=== PATIENT | male | born 1955 | race Caucasian/White ===

== ENCOUNTER 2020-06-07 06:36 | Outpatient (CLI) | payer BC ==
[2020-06-07 17:55] LABS: ALT (SGPT) 21 U/L (8-55); AST (SGOT) 22 U/L (5-34); Albumin 4.3 g/dL (3.4-4.8); Alkaline Phosphatase 68 U/L (40-110); Anion Gap 12 mmol/L (10-20); BUN (Urea Nitrogen) 16 mg/dL (8.4-25.7); Bilirubin, Total 1.2 mg/dL (0.2-1.2); Calc. Creatinine Clearance 0 mL/min (70-130); Calcium 8.3 mg/dL (7.8-10.44); Carbon Dioxide 29 mmol/L (23-31); Cardiac Risk 7.3 (Less than 4.5); Chloride 102 mmol/L (98-107); Cholesterol 226 mg/dl (< 200 Desired); Estimated GFR-MDRD 55; Globulin 2.4 g/dL (2.4-3.5); Glucose 103 mg/dL (80-115); HDL Cholesterol 31 mg/dL (>60 Neg Risk); LDL Cholesterol, Calculated 146 mg/dL; Potassium 4.2 mmol/L (3.5-5.1); Protein, Total 6.7 g/dL (5.8-8.1); Sodium 139 mmol/L (136-145); Triglycerides 245 mg/dL (Less than 150)
[2020-06-07 18:06] LABS: #Eosinphils 0.2 10x3/uL (0.0-0.5); #Monocytes 0.4 10x3/uL (0.0-1.1); #Neutrophils 3.8 10x3/uL (1.5-8.4); %Basophils 0.4 % (0.0-2.0); %Eosinophils 3.5 % (0.0-6.0); %Monocytes 7.2 % (0.0-10.0); %Neutrophils 66.5 % (40.0-75.0); Mean Corpuscular HGB CONC 34.6 G/DL (32.0-36.0); Mean Corpuscular Hemoglobin 30.7 PG (27.0-33.0); Mean Corpuscular Volume 88.9 fl (80.0-100.0); Mean Platelet Volume 11.7 fl (7.4-10.4); Platelet Count 179 10x3/uL (130-400); RBC Distribution Width 12.4 % (11.5-14.5); Red Blood Cell (RBC) Count 4.23 10x6/uL (4.40-5.80); White Blood Cell (WBC) Count 5.7 10x3/uL (4.5-11.0)
[2020-06-07 18:35] LABS: PTT 32.4 sec (22.0-33.0)
[2020-06-07 20:29] LABS: Hemoglobin A1c 5.4 % (4.0-6.0)
[2020-06-07 22:14] LABS: PSA-Asymptomatic (SCREENING) 1.19 ng/mL (0-4.0); Vitamin D, 25 Hydroxy 14.4 ng/ml (> 30.0)
[2020-06-08 03:09] LABS: SARS-CoV-2 MS2 Positive; SARS-CoV-2 N Gene Negative; SARS-CoV-2 S Gene Negative; SARS-CoV-2 by NAA Not Detected (NotDetected); SARS-CoV-2 orf1ab Negative
== END 2020-06-07 06:37 | disposition home or self-care (01) ==
LOC: LABBT 06:36
PROVIDERS: ATTEND Internal Medicine Cardiovascular Disease
DX: Z01.812 Encounter for preprocedural laboratory examination (principal); Z20.828 Contact with and (suspected) exposure to other viral communicable diseases; I48.91 Unspecified atrial fibrillation
CPT/HCPCS: 80061; 82306; 82607; 82746; 83036; 85610; 85730; 87635; G0103; U0003

== ENCOUNTER 2020-06-12 07:01 | Observation (INO) | payer BC ==
[2020-06-08 16:18] VITALS: BMI 34.7
[~2020-06-12 07:01] MED LIST: Heparin 10,000 UNITS/ 10 ML VIAL ONE
[2020-06-12] MEDS ORDERED: Fentanyl 100 MCG/2 ML VIAL ONE ×4 (07:03→12:52)
[2020-06-12] MEDS ORDERED: Midazolam HCl 2 mg/2 ml Vial ONE (07:56)
[2020-06-12] MEDS ORDERED: Heparin 25,000 units/D5W 500 ML ONE (09:09)
[2020-06-12] MEDS ORDERED: Heparin 10,000 UNITS/ 10 ML VIAL ONE (09:10)
[2020-06-12] MEDS ORDERED: Isoproterenol 0.2 MG/1 ML AMP ONE (10:12)
[2020-06-12] MEDS ORDERED: Ondansetron PF 4 MG/2 ML Vial ONE (10:51)
[2020-06-12] MEDS ORDERED: PHENYLEPHRINE-NS 100 MCG/ML 10 ML SYRINGE ONE (10:51)
[2020-06-12] MEDS ORDERED: Lidocaine 1% PF 5 ML VIAL ONE (10:51)
[2020-06-12] MEDS ORDERED: Rocuronium Bromide 10 MG/ML (10ML VIAL) ONE (10:51)
[2020-06-12] MEDS ORDERED: Dexamethasone 20 MG/5 ML VIAL ONE (10:51)
[2020-06-12] MEDS ORDERED: PROPOFOL 200 MG/20 ML VIAL ONE (10:51)
[2020-06-12] MEDS ORDERED: PROPOFOL 20 ML ONE (10:55)
[2020-06-12] MEDS ORDERED: Protamine Sulfate 50 MG/5 ML VIAL ONE (11:46)
[2020-06-12] MEDS ORDERED: Albuterol Sulfate 1.25 MG/3 ML NEB ONE (12:46)
[2020-06-12] MEDS ORDERED: Acetaminophen/Codeine 30-300mg Tablet PO PRN ×2 (13:00)
[2020-06-12] MEDS ORDERED: Furosemide 40 MG TAB PO PRN (13:06)
[2020-06-12] MEDS ORDERED: Potassium Chloride 20 MEQ TAB PO PRN (13:07)
[2020-06-12] MEDS ORDERED: Promethazine HCl 25 MG/ML VIAL ONE (14:07)
[2020-06-12] MEDS ORDERED: Acetaminophen/Codeine 30-300mg Tablet ONE (17:22)
[2020-06-12] MEDS ORDERED: Non-Formulary Medication 1 EACH PO PRN (18:56)
[2020-06-12] MEDS ORDERED: Ondansetron HCl/PF 4 MG/2 ML Vial IVP PRN (19:00)
[2020-06-12] MEDS ORDERED: Promethazine HCl 25 MG/ML VIAL IM/IV PRN (19:00)
[2020-06-12] MEDS: Carvedilol 25 MG TAB PO SCH ×2 (19:11→21:35)
[2020-06-12] MEDS: Sucralfate 1 GM TAB PO SCH ×2 (19:12→21:36)
[2020-06-12] MEDS ORDERED: ALPRAZolam 1 MG TAB PO SCH (21:00)
[2020-06-12] MEDS: Apixaban 5 MG TAB PO SCH (21:35)
[2020-06-12] MEDS: Magnesium Oxide 400 MG TAB PO SCH (21:36)
[2020-06-12] MEDS: Ketorolac Tromethamine 30 MG/ML VIAL IVP PRN (21:36)
[2020-06-12] MEDS: cloNIDine 0.1 MG TAB PO PRN (23:28)
[2020-06-13] MEDS: ALPRAZolam 0.25 MG TAB PO PRN ×2 (00:32→05:02)
[2020-06-13 04:21] LABS: Hemoglobin 12.2 g/dL (14.0-18.0); Platelet Count 173 thou/uL (130-400)
[2020-06-13] MEDS: cloNIDine 0.1 MG TAB PO PRN (05:02)
--- NOTE | 2020-06-13 07:27 | OP ---
DATE OF PROCEDURE: 06/12/2020 PROCEDURES PERFORMED: Electrophysiology study and radiofrequency ablation. PRIMARY CARE PROVIDER: Gillian Lopez, nurse practitioner. REASON FOR PROCEDURE: Mr. Buckner is a 64-year-old man with history of diastolic heart failure, significant LVH, obstructive sleep apnea, obesity, hypertension, and paroxysmal atrial fibrillation, which is highly symptomatic. He has not been able to tolerate antiarrhythmic regimen and was high risk for flecainide, has significant LVH. He is here for EP study and ablation. He has been well anticoagulated with Eliquis without interruption. DESCRIPTION OF PROCEDURE: The patient received general anesthesia. The left and right femoral vein were prepped, draped, and accessed under ultrasound guidance x2 in each side. On the left side, an 11-Malian sheath was used to advance the intracardiac echocardiogram. Probe was to the right atrium, where it was used to monitor the transseptal puncture, the pericardial space, and the catheter manipulation throughout the procedure. Also from the left femoral vein, an 8- Malian sheath was used to advance a DecaNav 3D mapping catheter and we obtained 3D map with this catheter as well as the His bundle, right atrium, right ventricle, and CS position was achieved. Pacing mapping was performed in each location including pacing left atrium via the CS and left ventricle later by the ablation catheter. Following this, IV heparin was administered, which was periodically checked and adjusted to keep ACT over 350. Following that, in the right femoral vein, two 8-Malian short sheath was exchanged to two SL1 sheaths. The sheaths were used to perform transseptal puncture under fluoroscopic and echocardiographic monitoring with the help of a powered Bitstrips transseptal needle. Through the SL1 sheath, a ThermoCool SFST catheter and a 20-pole Lasso catheter advanced to the left atrium. 3D map of the left atrium was obtained noting mildly enlarged left atrium, four separate pulmonary veins, and low scar burden. Following that, standard pulmonary venous isolation procedure was performed. Also roof and inferoposterior line were drawn to isolate the posterior wall. Throughout the posterior wall cerda, the esophageal temperature probe was closely monitored and excessive heating spots were avoided and also irrigated with high-flow irrigation for any temperature rise. We were able to isolate all 4 pulmonary veins and a posterior wall as well. After this the ablation catheter was advanced to the LV for LV pacing, ruling out accessory pathway. Isuprel was administered at this point and any reconnections re-ablated. At the end of the case, we used total of 91 lesions and 25 minutes and 22 seconds. Standard EP study was also performed demonstrating AV Wenckebach cycle length was 370 milliseconds and retrograde Wenckebach cycle length was 390 milliseconds. AV russ ERP was measured at 600/300 milliseconds. Concentric retrograde VA conduction was seen and no dual AV russ physiology was seen. Burst atrial pacing down to 200 milliseconds did not induce atrial arrhythmias. Following this, the catheters were removed from the left side and the long sheaths were exchanged to short sheaths and under vascular ultrasound, Vascade closures were performed in all four femoral veins. Protamine was also administered to reverse heparin effect. Prior to removal of the intracardiac catheter, the left ventricular view was checked again and no change in the pericardial space is noted. Also cardiac silhouette did not change throughout the procedure. CONCLUSION: 1. Successful isolation of all 4 pulmonary veins. 2. Posterior wall isolation with roof and inferoposterior lines. 3. Mildly enlarged left atrium with low scar burden. 4. Normal LVEF and significant LVH seen. 5. No evidence of accessory pathway or dual AV russ physiology. 6. No atrial arrhythmias inducible at the end of the case. PLAN: Monitor for recurrent arrhythmias and resume oral anticoagulation. Job ID: [id number] [facility]
[2020-06-13] MEDS: Magnesium Oxide 400 MG TAB PO SCH (08:09)
[2020-06-13] MEDS: Apixaban 5 MG TAB PO SCH (08:10)
[2020-06-13] MEDS: Sucralfate 1 GM TAB PO SCH ×2 (08:10→12:03)
[2020-06-13] MEDS: Carvedilol 25 MG TAB PO SCH (08:11)
[2020-06-13] MEDS ORDERED: Losartan 25 MG TAB PO SCH (09:00)
[2020-06-13] MEDS ORDERED: Allopurinol 300 MG TAB PO SCH (09:00)
[2020-06-13] MEDS ORDERED: Prevnar 13-Val Conj/PF 0.5 ML SYRINGE IM ONE (09:00)
[2020-06-13] MEDS ORDERED: Furosemide 40 MG/4 ML VIAL SLOW IVP SCH (09:00)
[2020-06-13] MEDS ORDERED: Enalaprilat Dihydrate 1.25 MG/ML VIAL SLOW IVP PRN (10:00)
[2020-06-13] MEDS: Ketorolac Tromethamine 30 MG/ML VIAL IVP PRN (12:41)
[2020-06-13 16:12] VITALS: BP 157/84; TEMP 98.4
[2020-06-13] MEDS ORDERED: Carvedilol 25 MG TAB PO SCH (17:00)
--- NOTE | 2020-06-13 23:50 | DIS ---
DATE OF ADMISSION: 06/12/2020 DATE OF DISCHARGE: 06/13/2020 23-hour observation. DIAGNOSIS: Paroxysmal atrial fibrillation. PROCEDURES PERFORMED: Electrophysiology study and radiofrequency ablation effectively isolating all four pulmonary veins in addition to the posterior wall. Mildly enlarged left atrium noted with low scar burden. Normal LVEF with significant left ventricular hypertrophy seen. No arrhythmias inducible at the end of the procedure. Vascade closure performed in all four femoral veins. SUBJECTIVE: Mr. Buckner is a 64-year-old man with a history of diastolic heart failure, significant LVH, and obstructive sleep apnea in addition to [id number] hypertension. He was seen to have highly symptomatic paroxysmal atrial fibrillation and not a good candidate for chronic antiarrhythmic therapy. He elected for outpatient EP study and ablation, which was performed as detailed above. He feels well overall. He does endorse he feels some fluid overload, shortness of breath, and peripheral swelling. He denies any chest discomfort, heart racing, palpitations, stroke or stroke-like symptoms. He is eating and drinking adequately and ambulating throughout the room. He has some mild tenderness at bilateral groin sites and has felt anxious for much of the night. OBJECTIVE: VITAL SIGNS: Temperature at discharge 98.1 degrees Fahrenheit, pulse 74, blood pressure 139/88, respirations 18, and oxygen 97% on room air. GENERAL: Patient is alert and oriented. Speech is clear. Affect is appropriate. He is in no apparent distress at the time of exam and resting comfortably in bed. HEENT: He is normocephalic, atraumatic. Sclerae anicteric. EOMs are intact. Oral mucosa is moist and pink with adequate dentition. NECK: Supple. Positive jugular venous distention. LUNGS: Clear in the upper nichols with bibasilar crackles to the lower nichols. HEART: Heart rate is irregularly irregular with crisp S1, S2. PMI is nondisplaced. ABDOMEN: Obese, slightly distended, which is partially his baseline habitus. EXTREMITIES: Warm and dry to touch. Well perfused without clubbing, cyanosis, 1+ pitting edema to his mid carrion, is noted in bilateral lower extremities. NEUROLOGIC: Grossly intact and nonfocal. Bilateral groin sites are stable without evidence of hematoma or bleeding complications. Telemetry and EKG show sinus rhythm. PLAN AND RECOMMENDATIONS: Mr. Buckner is doing well following his ablation yesterday. He is maintaining sinus rhythm. He did have some significant hypertension overnight and into this morning. His home medications were resumed and he was also given IV Lasix 40 mg to address his mild fluid overload. His blood pressure has corrected nicely and I feel he is ready for discharge. He is feeling well and is agreeable to this as well. DISCHARGE MEDICATIONS: Resuming home medications of: 1. Eliquis 5 mg p.o. b.i.d. 2. Allopurinol 300 mg p.o. daily. 3. Xanax 0.25 mg p.o. t.i.d. p.r.n. 4. Cozaar 100 mg p.o. daily . 5. Coreg increased to 50 mg b.i.d. 6. Xanax 1 mg p.o. at bedtime. 7. Mag-Ox 400 mg b.i.d. 8. Catapres 1 tab p.o. p.r.n. 9. Seroquel 100 mg p.o. daily p.r.n. New prescriptions: 1. Carafate 1 g p.o. q.i.d. x2 weeks. 2. Protonix 40 mg p.o. daily x1 month, then may resume home omeprazole. 3. Lasix 40 mg p.o. daily x3 days, then p.r.n. fluid retention, shortness of breath and edema to be taken with potassium chloride 20 mEq. DISCHARGE INSTRUCTIONS: No driving for at least three days or until bilateral groin sites have healed. In one week, he may resume activity gradually and as tolerated until then no lifting more than 10 to 15 pounds. He will follow up in 6 weeks with our office or sooner if symptoms dictate for any postablation arrhythmia concerns. CONDITION AT DISCHARGE: Stable. Over an hour time was spent arranging discharge and preparing this report. Job ID: [id number] [facility]
--- NOTE | 2020-06-20 20:34 | EKG ---
Test Reason : PREOP Blood Pressure : / mmHG Vent. Rate : 118 BPM Atrial Rate : 111 BPM P-R Int : 000 ms QRS Dur : 092 ms QT Int : 316 ms P-R-T Axes : 000 021 240 degrees QTc Int : 442 ms Atrial fibrillation with rapid ventricular response Abnormal ECG No previous ECGs available Confirmed by DR. Lisa CARDOZO ([id number]) on 06/20/2020 8:33:48 PM Referred By: [facility] Confirmed By:DR. Lisa CARDOZO
== END 2020-06-13 16:17 | disposition home or self-care (01) ==
LOC: CCL 07:01 → 2NO 11:53
PROVIDERS: ADMIT Internal Medicine Cardiovascular Disease; ATTEND Internal Medicine Cardiovascular Disease
PROC: 4A023FZ Measurement of Cardiac Rhythm, Percutaneous Approach (ICD-10-PCS; principal; 2020-06-13)
PROC: 4A0234Z Measurement of Cardiac Electrical Activity, Percutaneous Approach (ICD-10-PCS; 2020-06-13)
PROC: 02583ZZ Destruction of Conduction Mechanism, Percutaneous Approach (ICD-10-PCS; 2020-06-13)
PROC: 02K83ZZ Map Conduction Mechanism, Percutaneous Approach (ICD-10-PCS; 2020-06-13)
DX: I48.0 Paroxysmal atrial fibrillation (principal); I11.0 Hypertensive heart disease with heart failure; I50.30 Unspecified diastolic (congestive) heart failure; I25.10 Atherosclerotic heart disease of native coronary artery without angina pectoris; G47.33 Obstructive sleep apnea (adult) (pediatric); E66.9 Obesity, unspecified; Z68.37 Body mass index [BMI] 37.0-37.9, adult; Z79.01 Long term (current) use of anticoagulants; Z79.899 Other long term (current) drug therapy
CPT/HCPCS: 36415; 76942; 82565; 85014; 85018; 85049; 85347; 93005; 93010; 93613; 93622; 93623; 93656; 93657; 93662; 96374; 96375; C1732; C1759; G0378; J1100; J1644; J1885; J1940; J2250; J2405; J2550; J2704; J2720; J3010

== ENCOUNTER 2020-06-14 14:50 | Observation (INO) | payer BC ==
[~2020-06-14 14:50] MED LIST changes: -Heparin 10,000 UNITS/ 10 ML VIAL ONE; +Iopamidol-370 76% 500 ML 1 ML ONE
[2020-06-14] MEDS ORDERED: Labetalol HCl 100 MG/20 ML VIAL ONE (15:47)
[2020-06-14] MEDS ORDERED: Aspirin Chewable 81 MG TAB ONE (18:26)
--- NOTE | 2020-06-14 19:34 | RAD ---
PORTABLE CHEST: Date: 06/14/2020 HISTORY: Dyspnea. FINDINGS: Heart size is enlarged. Left-sided MediPort catheter is seen. Catheter tip overlies the superior vena cava. No signs of pneumothorax. Lungs are clear of infiltrates. No signs of failure. IMPRESSION: Cardiomegaly. POS: [facility]
--- NOTE | 2020-06-14 19:41 | CT ---
CT ANGIOGRAM CHEST WITH CONTRAST CT ANGIOGRAM ABDOMEN WITH CONTRAST DISSECTION PROTOCOL 06/14/20 HISTORY: Chest pain. COMPARISON: CT exam 2015. FINDINGS: Aortic contour is nonaneurysmal. There is mild edema with wall thickening of the lower lobe bronchi a s well as peripheral interstitial edema. This involves mainly only the lower lobes. There is small reactive paratracheal and paraesophageal lymph nodes as well as small bilateral hilar lymph nodes. Celiac trunk and superior mesenteric arteries are patent. Cortical scarring throughout t he left kidney with multiple cysts. There is also dystrophic ossifications inferior pole left kidney. Adrenal glands unremarkable. Cyst in hepatic segment III. No pneumomediastinum. No pneumothorax. Both upper lobe calcified granuloma. IMPRESSION: 1. No aortic dissection or aneurysm. 2. Some mild pulmonary edema in both lung bases along with peribronchial wall thickening. 3. No pneumothorax or pneumomediastinum. POS: [facility]
[2020-06-14] MEDS ORDERED: Ondansetron PF 4 MG/2 ML Vial IVP PRN (20:49)
[2020-06-14] MEDS ORDERED: Ondansetron ODT 4 MG TAB PO PRN (20:50)
[2020-06-14 20:51] LABS: ALT (SGPT) 34 U/L (8-55); AST (SGOT) 40 U/L (5-34); Albumin 4.2 g/dL (3.4-4.8); Alkaline Phosphatase 74 U/L (40-110); Anion Gap 14 mmol/L (10-20); BUN (Urea Nitrogen) 23 mg/dL (8.4-25.7); Bilirubin, Total 1.3 mg/dL (0.2-1.2); Calc. Creatinine Clearance 0 mL/min (70-130); Calcium 7.9 mg/dL (7.8-10.44); Carbon Dioxide 27 mmol/L (23-31); Chloride 101 mmol/L (98-107); Globulin 2.4 g/dL (2.4-3.5); Glucose 118 mg/dL (80-115); Lipase 19 U/L (8-78); Potassium 3.6 mmol/L (3.5-5.1); Protein, Total 6.6 g/dL (5.8-8.1); Sodium 138 mmol/L (136-145)
[2020-06-14] MEDS ORDERED: Acetaminophen 325 MG TAB PO PRN ×2 (20:51→21:13)
[2020-06-14 20:57] LABS: Troponin I 2.121 ng/mL (< 0.028)
[2020-06-14] MEDS ORDERED: Acetaminophen 650 MG Suppository PR PRN (21:13)
[2020-06-14] MEDS ORDERED: Potassium Chloride 20 MEQ TAB PO PRN (21:14)
[2020-06-14] MEDS ORDERED: ALPRAZolam 0.25 MG TAB PO PRN (21:14)
[2020-06-14] MEDS ORDERED: Apixaban 5 MG TAB PO SCH (21:45)
[2020-06-14] MEDS ORDERED: traMADol HCl 50 MG TAB PO SCH (21:45)
[2020-06-14] MEDS ORDERED: Carvedilol 25 MG TAB PO SCH (21:45)
[2020-06-14] MEDS ORDERED: ALPRAZolam 1 MG TAB PO SCH (22:00)
[2020-06-14 22:18] LABS: #Eosinphils 0.1 thou/uL (0.0-0.7); #Lymphocytes 0.8 thou/uL (1.20-3.40); #Monocytes 0.9 thou/uL (0.11-0.59); #Neutrophils 5.9 thou/uL (1.40-6.50); %Basophils 0.3 % (0.0-1.0); %Eosinophils 1.4 % (0.0-10.0); %Lymphocytes 10.8 % (21.0-51.0); %Monocytes 11.1 % (0.0-10.0); %Neutrophils 76.4 % (42.0-75.0); Hemoglobin 11.7 g/dL (14.0-18.0); INR-International Normal Ratio 1.1; Mean Corpuscular HGB CONC 35.4 g/dL (32.0-36.0); Mean Corpuscular Hemoglobin 32.8 pg (27.0-31.0); Mean Corpuscular Volume 92.5 fL (78.0-98.0); Mean Platelet Volume 9.2 fL (7.4-10.4); PTT 36.8 sec (22.9-36.1); Platelet Count 113 thou/uL (130-400); Prothrombin Time 14.7 sec (12.0-14.7); Red Blood Cell (RBC) Count 3.57 mill/uL (4.70-6.10); White Blood Cell (WBC) Count 7.7 thou/uL (4.8-10.8)
[2020-06-14 22:21] LABS: Platelet Morphology Comment Appears Decreased
[2020-06-14 22:26] LABS: CRP (Inflammatory) 6.18 mg/dL (= or < 0.5); Magnesium 1.4 mg/dL (1.6-2.6)
[2020-06-14 23:04] LABS: CKMB 5.4 ng/mL (0-6.6)
--- NOTE | 2020-06-14 23:04 | PDOC.HHP ---
Hospitalist HPI - History of Present Illness History of Present Illness: ADMISSION DATE: 06/14/2020 TIME OF ASSESSMENT: 1900 PRIMARY CARE PHYSICIAN: Gillian Lopez PA-C CHIEF COMPLAINT: Chest pain and a headache HPI: This is a 64-year-old gentleman who presents with complaints of chest pain that woke him up early hours this morning at approximately 3 AM. He had a right-sided headache as well at that time. States the pain was a 7 or 8 out of 10 in severity described as a constant pressure alleviated only with sitting forward and made worse with leaning or laying back. It is nonradiating. He states the pain persisted for approximately 4 hours until his woke up and he asked help with taking his morning medications. The pain has persisted which prompted him to come into the emergency department earlier this evening. He states it has eased to a 5 out of 10 in severity after taking his morning medications but has not resolved completely at any point today, either his chest pain or his headache. Patient states that prior to the recent procedure his blood pressure is always elevated in the 210s systolic and was within normal range prior to discharge. He states he felt extremely well and slept better than he had in a long time. He was discharged from the hospital yesterday, 06/13/2020, after undergoing an ablation by Dr. Davis for paroxysmal atrial fibrillation. He states upon discharge there were changes made to his home medications which included changing his Coreg from 25 mg p.o. 3 times daily to 50 mg p.o. twice daily. He was also sent on Lasix 40 mg daily x3 days due to fluid retention that he experienced while he was in the hospital. He states he had gained approximately 30 pounds during his admission which is evident from the fact that he currently weighs 170 pounds compared to 200 prior to discharge. ROS: He denies having any fevers chills or sweats. Denies any nausea or vomiting. Has not had any abdominal pain but does report loose stools after eating which is chronic for him since undergoing a cholecystectomy in the past. No blood in the stools. States the pain seems to be worse with deep inspiration as well. Has not noted any cough or hemoptysis. No lower extremity swelling calf tenderness or edema. No urinary symptoms. All other review of systems apart from what is mentioned above in HPI are negative. ED COURSE: EKG done in the emergency department was concerning for possible ST changes however this was reviewed by Dr. Soliz who felt it showed changes consistent with early repolarization. He advised him and the patient and plan for cardiology review in the morning. Laboratories done showed white cell count 7.7, hemoglobin 11.7, hematocrit 33, platelets 113, neutrophils 76.4%. Sodium 138 potassium 3.6 BUN 23, creatinine 1.44 GFR 50. Lactic acid 1.1. Total bilirubin 1.3, AST 40, ALT 34, alk phos 74, initial troponin I 2.121 and BNP 94.6. Lipase normal. Chest x-ray was done showing cardiomegaly. He underwent a CT angiogram of the chest that showed no aortic dissection or aneurysm. Some mild pulmonary edema in both lung bases along with peribronchial wall thickening noted. No pneumothorax or pneumomediastinum present. For his BP he was given 20 mg of IV labetalol. Also given Aspirin 324 mg PO due to elevated troponin. PAST MEDICAL HISTORY: 1. Hypertension 2. Paroxysmal A. fib, status post ablation 2. Asthma 3. GERD 4. Nephrolithiasis 5. History of lymphoma treated with chemo and in remission 6. Anxiety 7. Tobacco use PAST SURGICAL HISTORY: 1. Cardiac ablation on 06/12/2020 2. Lithotripsy 3. History of renal stents 4. Cholecystectomy 5. Appendectomy 6. Hemorrhoidectomy 7. Left neck surgery for skin problem SOCIAL HISTORY: Patient lives with his . He is fully independent at baseline. He smokes 3 to 4 cigarettes a day. Denies any alcohol consumption or drug use. FAMILY HISTORY: History of hypertension diabetes and heart disease in several family members. ALLERGIES: No known drug allergies CURRENT MEDICATIONS: 1. Allopurinol 300 mg p.o. daily 2. Alprazolam 0.25 mg p.o. 3 times daily as needed and 1 mg at bedtime 3. Clonidine 0.1 mg p.o. as needed 4. Eliquis 5 mg p.o. twice daily 5. Furosemide 20 mg daily x3 days 6. Magnesium oxide 400 mg p.o. twice daily 7. Pantoprazole 40 mg p.o. daily 8. Potassium chloride 20 mEq p.o. daily 9. Coreg 50 mg p.o. twice daily 10. Losartan 100 mg p.o. daily 11. Atorvastatin 20 mg p.o. at bedtime 12. Quetiapine 100 mg p.o. as needed 13. Sucralfate 1 g p.o. 4 times daily Hospitalist ROS - Medication Medications: Active Medications Generic Name Dose Route Start Last Admin Trade Name Rush PRN Reason Stop Dose Admin Alprazolam 0.25 mg 06/14/20 21:14 06/14/20 22:17 Alprazolam 0.25 Mg Tab PO 0.25 mg TID PRN Administration Anxiety Alprazolam 1 mg 06/14/20 22:00 06/14/20 22:17 Alprazolam 1 Mg Tab PO 06/14/20 23:59 1 mg NOW LAURY Administration Apixaban 5 mg 06/14/20 21:45 06/14/20 22:17 Apixaban 5 Mg Tab PO 06/14/20 23:45 5 mg NOW LAURY Administration Carvedilol 50 mg 06/14/20 21:45 06/14/20 22:16 Carvedilol 25 Mg Tab PO 06/14/20 23:45 50 mg NOW LAURY Administration Tramadol HCl 100 mg 06/14/20 21:45 06/14/20 22:17 Tramadol Hcl 50 Mg Tab PO 06/14/20 23:45 100 mg NOW LAURY Administration - Exam General Appearance: NAD, awake alert General - other findings: VS: Temp 98.4, HR 70, RR 16, O2 sat 97% on room air, BP 228/103 Eye: PERRL, anicteric sclera ENT: no oropharyngeal lesions, moist mucosa Neck: supple, no lymphadenopathy Heart: RRR, normal peripheral pulses Heart - other findings: No reporducible pain on palpation Respiratory: CTAB, no wheezes, no rales, no ronchi, no tachypnea Respiratory - other findings: pain with deep inspiration Gastrointestinal: soft, non-tender, non-distended, normal bowel sounds, no guarding, no rigidity Extremities: no edema Skin: normal turgor, no lesions, no rashes Neurological: cranial nerve grossly intact, normal sensation to touch, no weakness Musculoskeletal: normal tone, normal strength, no muscle wasting Psychiatric: normal affect, normal behavior, A&O x 3 Hospitalist Results - Labs Result Diagrams: 06/14/20 15:30 06/14/20 15:30 Lab results: WBC 7.7 thou/uL (4.8-10.8) 06/14/20 15:30 Hgb 11.7 g/dL (14.0-18.0) L 06/14/20 15:30 Hct 33.0 % (42.0-52.0) L 06/14/20 15:30 MCV 92.5 fL (78.0-98.0) 06/14/20 15:30 Plt Count 113 thou/uL (130-400) L 06/14/20 15:30 Neutrophils % 76.4 % (42.0-75.0) H 06/14/20 15:30 Sodium 138 mmol/L (136-145) 06/14/20 15:30 Potassium 3.6 mmol/L (3.5-5.1) 06/14/20 15:30 Chloride 101 mmol/L (98-107) 06/14/20 15:30 Carbon Dioxide 27 mmol/L (23-31) 06/14/20 15:30 BUN 23 mg/dL (8.4-25.7) 06/14/20 15:30 Creatinine 1.44 mg/dL (0.7-1.3) H 06/14/20 15:30 Glucose 118 mg/dL (80-115) H 06/14/20 15:30 Lactic Acid 1.0 mmol/L (0.5-2.2) 06/14/20 21:36 Calcium 7.9 mg/dL (7.8-10.44) 06/14/20 15:30 Total Bilirubin 1.3 mg/dL (0.2-1.2) H 06/14/20 15:30 AST 40 U/L (5-34) H 06/14/20 15:30 ALT 34 U/L (8-55) 06/14/20 15:30 Alkaline Phosphatase 74 U/L (40-110) 06/14/20 15:30 Troponin I 1.573 ng/mL (< 0.028) H* 06/14/20 21:36 C-Reactive Protein 6.18 mg/dL (= or < 0.5) H 06/14/20 21:36 B-Natriuretic Peptide 94.6 pg/mL (0-100) 06/14/20 15:30 Serum Total Protein 6.6 g/dL (5.8-8.1) 06/14/20 15:30 Albumin 4.2 g/dL (3.4-4.8) 06/14/20 15:30 Lipase 19 U/L (8-78) 06/14/20 15:30 - Radiology Interpretation CT scan - chest Status: report reviewed by me Hospitalist H&P A/P - Problem (1) Chest pain Code(s): R07.9 - CHEST PAIN, UNSPECIFIED Status: Acute Assessment and Plan: Continue to trend troponins, if elevated due to recent ablation should continue to downtrend. Pain is position, suspect pericarditis given recent ablation Ibuprofen 400 mg PO x 1 Cardiac monitoring Check mg+, TSH, and AM lipid panel. Nitrobid for chest pain and elevated BP Resume home medications once verified Cardiology consult (EKG reviewed by Dr. Soliz) Continue ASA and Eliquis. NPO after midnight Echo ordered (2) Status post ablation of atrial fibrillation Code(s): Z98.890 - OTHER SPECIFIED POSTPROCEDURAL STATES; Z86.79 - PERSONAL HISTORY OF OTHER DISEASES OF THE CIRCULATORY SYSTEM Status: Acute Assessment and Plan: See above. (3) Hypertensive urgency Code(s): I16.0 - HYPERTENSIVE URGENCY Status: Acute Assessment and Plan: Home meds restarted Nitrobid as mentioned above Tylenol for subsequent RUSSELL. (4) GERD (gastroesophageal reflux disease) Code(s): K21.9 - GASTRO-ESOPHAGEAL REFLUX DISEASE WITHOUT ESOPHAGITIS Status: Chronic Assessment and Plan: Resume protonix (5) Anxiety Code(s): F41.9 - ANXIETY DISORDER, UNSPECIFIED Status: Chronic Assessment and Plan: Stable, Resume home medications once verified (6) Tobacco use Code(s): Z72.0 - TOBACCO USE Status: Chronic Assessment and Plan: Tobacco cessation - Plan Plan: DVT prophylaxis: Patient already on Eliquis CODE STATUS: FULL Case discussed with attending who agrees with plan as above.
[2020-06-14] MEDS ORDERED: Ibuprofen 800 MG TAB PO SCH (23:15)
[2020-06-14] MEDS ORDERED: Electrolyte Replacement Protocol 1 EACH FS PRN (23:15)
[2020-06-14] MEDS ORDERED: Nitroglycerin 2% Ointment 1 INCH/1 GM Packet TOP SCH (23:15)
[2020-06-14] MEDS ORDERED: Magnesium 2 GM/50 ML 2 GM in Premix Bag 1 BAG IVPB SCH (23:30)
[2020-06-14 23:58] VITALS: BMI 35.4
[2020-06-15 01:59] LABS: Critical Call Chem Troponin I RESULT DECREASING
[2020-06-15 02:17] LABS: CKMB 4.5 ng/mL (0-6.6)
[2020-06-15] MEDS ORDERED: Melatonin 3 MG TAB PO PRN (02:46)
[2020-06-15] MEDS ORDERED: HYDROcodone/Acetaminophen 5/325 mg Tablet PO SCH (03:00)
[2020-06-15] MEDS ORDERED: Magnesium 2 GM/50 ML 2 GM in Premix Bag 1 BAG IVPB SCH (06:30)
[2020-06-15] MEDS ORDERED: Amlodipine 5 MG TAB PO SCH ×2 (07:00→13:00)
[2020-06-15] MEDS: Nitroglycerin 2% Ointment 1 INCH/1 GM Packet TOP SCH ×2 (07:54→12:42)
[2020-06-15] MEDS: Sucralfate 1 GM TAB PO SCH ×2 (08:58→12:41)
[2020-06-15] MEDS ORDERED: Furosemide 40 MG TAB PO SCH (09:00)
[2020-06-15] MEDS ORDERED: Apixaban 5 MG TAB PO SCH (09:00)
[2020-06-15] MEDS ORDERED: Allopurinol 300 MG TAB PO SCH (09:00)
[2020-06-15] MEDS ORDERED: Carvedilol 25 MG TAB PO SCH (09:00)
[2020-06-15] MEDS ORDERED: Losartan 25 MG TAB PO SCH (09:00)
--- NOTE | 2020-06-15 09:20 | CON ---
DATE OF CONSULTATION: 06/15/2020 HISTORY OF PRESENT ILLNESS: I am seeing Mr. 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 His problems are 1. Acute pleuritic appearing chest pains consistent with postablation pericarditis, now resolving. 2. Paroxysmal atrial fibrillation. a. Status post pulmonary venous isolation procedure on 06/13/2020. b. Followup CT scan this admission reveals no pericardial effusion. 3. Hypertensive heart disease with severe LVH, likely diastolic dysfunction. a. Adequate compensation currently. b. Still poor control of blood pressure is noted. 4. Anxiety. 5. Elevated BMI. 6. History of GERD. 7. History of smoking with history of asthma. 8. Prior history of lymphoma treated with chemotherapy, in remission. ALLERGIES: NONE. MEDICATIONS: At home included 1. Xanax. 2. Seroquel. 3. Mag oxide. 4. Cozaar. 5. Catapres. 6. Eliquis 5 mg twice a day. 7. Allopurinol. 8. Carafate. 9. K-Dur. 10. Lasix. 11. Protonix. 12. Coreg 50 mg twice a day. 13. Lipitor. SUBJECTIVE: Mr. Buckner is here with severe chest tightness sensation which appeared to be pleuritic, worse with inspiration. It has been constant and drove to the ER. He was evaluated by the ER physician primary team with a CT scan, chest x-ray and blood tests. He was noted to have no pericardial effusions, no white cell count elevation and mild decrease in troponin levels consistent with post ablation troponin rise. His EKG also was not suggestive of any arrhythmias or ST changes to suggest coronary event. This morning, his chest tightness is minimal. He is feeling better. He denies fever, chills, or cough. No groin site tenderness or swelling. He has no abdominal discomfort. No vomiting. Rest of the system otherwise unremarkable. PAST MEDICAL HISTORY: As above. SOCIAL HISTORY: The patient is a smoker. He does drink regularly, but with moderation and denies drug use. 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 FAMILY HISTORY: Not contributory. PHYSICAL EXAMINATION: VITAL SIGNS: Blood pressure is initially 228/103, this morning 154/79, heart rate 65, respiratory rate 20, temperature 97.6 degrees Fahrenheit. The weight is 275 pounds. GENERAL: Alert and oriented man with elevated BMI, in no apparent distress. BMI 35. NECK: Supple. Jugular veins not distended. CHEST: Coarse, no crackles. HEART: Sounds are regular in rate and rhythm. I do not hear murmur, gallop or rub. ABDOMEN: Benign. Bowel sounds positive. EXTREMITIES: Lower extremities without edema, clubbing or cyanosis. Pulses are adequate. NEUROLOGIC: The patient is nonfocal. MUSCULOSKELETAL: Without joint deformity. SKIN: Without rash. IMAGING: EKG is reviewed from 06/14/2020 revealing sinus rhythm, rate of 72 beats per minute. LVH with nonspecific T changes are noted. The QTc is 479 milliseconds. Subsequent EKGs are similar. The telemetry strips reveal no significant atrial or ventricular arrhythmias. LABORATORY DATA: From 06/14/2020, INR is 1.12. White count 7.7, hemoglobin 11.7, platelet count 113. The repeated troponins are 2.12, 1.57, 1.28, decreasing trend. CRP 6.18. TSH 1.07. The CT scan was revealing no dissection or pulmonary embolism. No pneumothorax or no pericardial effusion. ASSESSMENT AND PLAN: Mr. Buckner is a pleasant 64-year-old man with paroxysmal Atrial fibrillation, hypertensive heart disease, status post pulmonary venous isolation procedure on 06/12/2020, who came in with pleuritic/pericarditis appearing chest pains. His EKG and down trending troponins are not suggestive of an acute coronary event more consistent with a post ablation pericardial irritation. At this point, I would recommend continued oral anticoagulation, continued p.r.n. Motrin if recurrent chest pains are occurring, which I am expecting to decrease with time. He needs better blood pressure control and I would add Norvasc to his current regimen and consider at a later time switching his ARB to more potent olmesartan, continue using diuretics as necessary as well. He already has followup appointments arranged with his primary care physician and his squilgeer, Dr. Humphrey. We will see him back as planned in 6 weeks as outpatient or earlier as symptoms dictate. He is stable from EP standpoint for discharge. Thank you for allowing me to participate in the care of this patient. Job ID: [id number]
[2020-06-15 11:33] VITALS: BP 167/75; TEMP 98
[2020-06-15] MEDS ORDERED: Fioricet 325/50/40 mg Tablet PO PRN (11:33)
[2020-06-15] MEDS ORDERED: Fioricet 325/50/40 mg Tablet PO SCH (11:45)
--- NOTE | 2020-06-15 13:17 | CON ---
DATE OF CONSULTATION: HISTORY OF PRESENT ILLNESS: The patient is a 64-year-old gentleman with a history of coronary artery disease, who presents with midsternal chest discomfort. The patient has a history of coronary artery disease. He states he has undergone two previous catheterizations at [facility]. The patient reports that he had only mild coronary artery disease. He has been on medical therapy. The patient also has poorly controlled hypertension. The patient states that he was feeling well until he underwent an ablation a few days ago. He subsequently developed midsternal chest discomfort. He was at home and this discomfort was in the center of his chest and did not radiate. It became very severe. The discomfort was clearly made better when he sat forward and worse when he sat up.. The patient presented to the emergency room for further evaluation. The patient states his chest pain subsequently resolved a few hours later. The patient denies having any present chest discomfort. PAST MEDICAL HISTORY: 1. Coronary artery disease. 2. Hypertension. 3. Lymphoma. 4. Atrial fibrillation. 5. Asthma. 6. Nephrolithiasis. 7. History of lymphoma. 8. Anxiety. PAST SURGICAL HISTORY: Cholecystectomy, appendectomy, hemorrhoidectomy,and neck surgery. SOCIAL HISTORY: Long history of tobacco abuse. FAMILY HISTORY: Positive family history of coronary artery disease. ALLERGIES: NO KNOWN DRUG ALLERGIES. MEDICATIONS: 1. Lipitor 20 daily. 2. Lasix 40 daily. 3. Coreg 50 b.i.d. 4. Eliquis 5 b.i.d. 5. Allopurinol 300 daily. 6. Xanax 1 mg at bedtime. 7. Magnesium oxide 400 b.i.d. 8. Losartan 100 daily. 9. Carafate 1 g q.i.d. 10. Losartan 100 mg daily. REVIEW OF SYSTEMS: Ten-point system otherwise unremarkable. No history of easy bruising or bleeding. PHYSICAL EXAMINATION: GENERAL: Obese gentleman. VITAL SIGNS: Blood pressure 167/75. NECK: No jugular venous distention. LUNGS: Clear to auscultation. HEART: Regular rate and rhythm. Normal S1 and S2. No murmurs. ABDOMEN: Distended. EXTREMITIES: Show no edema. VASCULAR: Radial pulses 2+. LABORATORY DATA: Sodium was 138, potassium 3.6, chloride 101, bicarbonate 27, BUN 23, and creatinine 1.4. CPK-MB was 5.4. Troponin 1.5. White blood cell count 7.7, hemoglobin 11.7, hematocrit 33.0, and platelets are 113. EKG normal sinus rhythm with a nonspecific T-wave abnormality. IMPRESSION: 1. Chest pain suggestive of pericarditis. 2. Status post ablation for atrial fibrillation. 3. History of lymphoma. 4. Poorly controlled hypertension. 5. Obesity. 6. Tobacco abuse. 7. Dyslipidemia. PLAN: This gentleman presents with chest pain very suggestive of pericarditis. The patient's symptoms have resolved. This most likely was secondary to his ablation. From a cardiac standpoint, his blood pressure is poorly controlled. I agree with adding a calcium-channel walker. We will send the patient home on either Norvasc or Nifedipine. The patient should follow up with his administrative assistant coordinator, Dr. Humphrey at [facility]. We will follow this patient with you through his hospitalization. Job ID: [id number] MTDD
--- NOTE | 2020-06-15 14:34 | PDOC.DS.DS ---
Provider - Provider Date of Admission: 06/14/20 18:57 Date of Discharge: 06/15/20 Admitting Provider: Ivan Montemayor MD Consultations: Cardiology, Other (EP, Dr. Davis) Primary Care Physician: Davidson Davis MD Course - Hospital Course Hospital Course: DISCHARGE DIAGNOSES: 1. Chest pain due to pericarditis 2. Pericarditis due to recent catheter ablation 3. Elevated troponin secondary to recent catheter ablation 4. Atrial fib status post catheter ablation 5. GERD 6. Uncontrolled hypertension 7. Anxiety disorder 8. Tobacco dependent disorder PERTINENT IMAGING STUDIES: Chest x-ray: Negative for acute cardiopulmonary process, cardiomegaly CTA aortic dissection protocol: No aortic dissection or aneurysm. Mild pulmonary edema HISTORY OF PRESENT ILLNESS AND BRIEF HOSPITAL COURSE: The patient is a pleasant 64 years old gentleman who has significant past medical histories of hypertension, paroxysmal atrial fib with recent status post catheter ablation, asthma, GERD, anxiety disorder, tobacco dependent disorder, who presented to ED with complaint of chest pain. Patient reported his symptoms started around 3 AM that woke him up from sleep. Pain he described appears to be positional. He was discharged from the hospital on 06/13/2020, after undergoing catheter ablation for atrial flutter by . His blood pressure was noted elevated on arrival. His troponins were was elevated at 2.2, however has been trended down. Patient was seen by cardiology as well as EP. [place] that his symptoms are related to pericarditis due to recent procedure from catheter ablation. Symptom now is much better, recommend discharged home on NSAID, and added Norvasc for blood pressure control. Patient to follow-up with primary ordnance keeper Dr. Humphrey at [facility] PROCEDURE PERFORMED: NONE DISCHARGE CONDITION: STABLE DISPOSITION: HOME PHYSICAL EXAM: General Appearance: Alert, oriented, resting comfortably, no apparent distress, well developed/nourished. HEENT: Normocephalic/atraumatic, moist mucous membrane, normal ENT inspection, normal tones. PERRLA, no scleral icterus, normal conjunctiva Neck: Supple, normal inspection, no JVD Respiratory: Lungs are clear bilaterally, normal breath sounds, no accessory mu scle use Cardiovascular: Regular rate, regular rhythm, no murmur, no rubs Abdomen: Soft, nontender, nondistended, normal bowel sounds, no organomegaly, no guarding no rebound Back: Normal inspection, no CVA tenderness Extremities: No clubbing, no cyanosis, no edema Psych/Mental Status: Normal affect, speech, non-pressured, AAO x 3 Neurologic: CN II-XII are intact. Skin: Warm/Dry, Normal Color, no rashes DISCHARGE TIME SPENT: >30 MINUTES Resuscitation Status: 06/14/20 21:13 Resuscitation Status Routine Co-Sign Provider: Resuscitation Status: FULL: Full Resuscitation - Labs Lab Results: 06/14/20 15:30 06/14/20 15:30 Abnormal Lab Results - Last 48 hrs 06/14/20 15:30: RBC 3.57 L, Hgb 11.7 L, Hct 33.0 L, MCH 32.8 H, Plt Count 113 L, Neutrophils % 76.4 H, Lymphocytes % 10.8 L, Monocytes % 11.1 H, Lymphocytes # 0.8 L, Monocytes # 0.9 H, Plt Morphology Comment Appears Decreased L 06/14/20 15:30: Creatinine 1.44 H, Total Bilirubin 1.3 H, AST 40 H 06/14/20 15:30: APTT 36.8 H 06/14/20 15:30: Troponin I 2.121 H* 06/14/20 21:36: Troponin I 1.573 H* 06/14/20 21:36: Magnesium 1.4 L, C-Reactive Protein 6.18 H 06/15/20 01:11: Troponin I 1.284 H* - Physical Exam Vitals: Vital Signs (12 hours) Temp Pulse Resp BP Pulse Ox 06/15/20 11:05 98 F 54 L 23 H 167/75 H 96 06/15/20 08:30 98.0 F 73 15 197/94 H 96 06/15/20 06:10 65 154/79 H 06/15/20 04:00 97.6 F 68 20 185/75 H 92 L Weight Weight 275 lb 9.6 oz Physical Exam: The patient was seen and examined on the day of discharge. Plan - Discharge Medications Prescriptions: Naproxen 250 mg PO BID #20 tablet Amlodipine [Norvasc] 10 mg PO DAILY #30 tab Home Medications: Medication Instructions Recorded Confirmed Type ALPRAZolam [Xanax] 0.25 mg PO TID PRN 11/09/13 06/14/20 History ALPRAZolam [Xanax] 1 mg PO HS 11/09/13 06/14/20 History Allopurinol 300 mg PO DAILY 06/08/20 06/14/20 History Apixaban [Eliquis] 5 mg PO BID 06/08/20 06/14/20 History Losartan Potassium [Cozaar] 100 mg DAILY 06/08/20 06/12/20 History Losartan Potassium [Cozaar] 100 mg PO DAILY 06/08/20 06/14/20 History Magnesium Oxide [Mag-Oxide] 400 mg BID 06/08/20 06/14/20 History QUEtiapine Fumarate [SEROquel] 100 mg PO DAILY PRN 06/08/20 06/14/20 History cloNIDine [Catapres] 1 tab PRN PRN 06/08/20 06/14/20 History Carvedilol [Coreg] 50 mg PO BID #0 06/13/20 06/14/20 Rx Furosemide [Lasix] 40 mg PO DAILY #14 tab 06/13/20 06/14/20 Rx Pantoprazole [Protonix] 40 mg PO DAILY #30 tab 06/13/20 06/14/20 Rx Potassium Chloride [K-Dur] 20 meq PO DAILYPRN PRN #14 tab 06/13/20 06/14/20 Rx Sucralfate [Carafate] 1 gm PO QID #56 tab 06/13/20 06/14/20 Rx Atorvastatin Calcium 20 mg PO HS 06/14/20 06/14/20 History Amlodipine [Norvasc] 10 mg PO DAILY #30 tab 06/15/20 Rx Naproxen 250 mg PO BID #20 tablet 06/15/20 Rx Allergies: No Known Drug Allergies Allergy (Verified 06/14/20 20:55) - Discharge Instructions Activity:: Activity as Tolerated Nourishment:: Heart Healthy Diet - Follow up Plan Referrals: Davidson Davis MD [Primary Care Provider] - YOVANI HUMPHREY [ Not on Staff] - 7 Days Disposition: HOME Quality - Care Measures CORE MEASURES:: N/A
[2020-06-15] MEDS ORDERED: ALPRAZolam 1 MG TAB PO SCH (21:00)
[2020-06-15] MEDS ORDERED: Atorvastatin Calcium 20 MG TAB PO SCH (21:00)
[2020-06-15] MEDS ORDERED: FLU VACC QS2020-21(6MOS UP)/PF 60 MCG/0.5 ML SYRINGE IM ONE (21:00)
[2020-06-16] MEDS ORDERED: Amlodipine 5 MG TAB PO SCH ×2 (09:00)
== END 2020-06-15 15:42 | disposition home or self-care (01) ==
LOC: ERS 14:50 → 2NO 18:57 → INTOOBSV 18:57
PROVIDERS: ADMIT Internal Medicine; ATTEND Family Medicine
DX: I97.190 Other postprocedural cardiac functional disturbances following cardiac surgery (principal); I31.9 Disease of pericardium, unspecified; R77.8 Other specified abnormalities of plasma proteins; I48.0 Paroxysmal atrial fibrillation; K21.9 Gastro-esophageal reflux disease without esophagitis; I16.0 Hypertensive urgency; I11.9 Hypertensive heart disease without heart failure; F41.9 Anxiety disorder, unspecified; F17.210 Nicotine dependence, cigarettes, uncomplicated; J45.909 Unspecified asthma, uncomplicated; I25.10 Atherosclerotic heart disease of native coronary artery without angina pectoris; E66.9 Obesity, unspecified; Z68.35 Body mass index [BMI] 35.0-35.9, adult; Z85.72 Personal history of non-Hodgkin lymphomas; Z79.01 Long term (current) use of anticoagulants; Z79.899 Other long term (current) drug therapy
CPT/HCPCS: 36415; 71045; 71275; 74174; 80053; 82553; 83605; 83690; 83735; 83880; 84443; 84484; 85025; 85610; 85730; 86140; 93005; 93306; 94760; 96365; 96374; 96375; 96376; G0378; J3475; Q9967

== ENCOUNTER 2021-01-04 22:33 | Emergency (ER) | payer BC | END 2021-01-05 01:10 | disposition left against medical advice (07) | LOC: ERS 22:33 | DX: Z53.21 Procedure and treatment not carried out due to patient leaving prior to being seen by health care provider (principal) ==

== ENCOUNTER 2021-03-30 12:05 | Outpatient (CLI) | payer BC ==
[2021-03-30 12:39] LABS: Hemoglobin 12.7 g/dL (13.5-17.5); Mean Corpuscular HGB CONC 34.7 g/dL (32.0-36.0); Mean Corpuscular Hemoglobin 32.3 pg (27.0-33.0); Mean Corpuscular Volume 93.1 fl (81.2-95.1); Mean Platelet Volume 11.6 fl (7.4-10.4); Platelet Count 217 10x3/uL (150-450); RBC Distribution Width 12.4 % (11.5-14.5); Red Blood Cell (RBC) Count 3.93 10x6/uL (4.32-5.72); White Blood Cell (WBC) Count 7.8 10x3/uL (3.5-10.5)
[2021-03-30 13:08] LABS: Anion Gap 16 mmol/L (10-20); BUN (Urea Nitrogen) 15 mg/dL (8.4-25.7); Calc. Creatinine Clearance 0 mL/min (70-130); Calcium 8.8 mg/dL (7.8-10.44); Carbon Dioxide 24 mmol/L (23-31); Chloride 104 mmol/L (98-107); Glucose 133 mg/dL (80-115); Sodium 140 mmol/L (136-145)
[2021-03-31 17:40] LABS: SARS-CoV-2 PCR by NAA Not Detected (NotDetected)
== END 2021-03-30 12:06 | disposition home or self-care (01) ==
LOC: LABBT 12:05
PROVIDERS: ATTEND Neurological Surgery
DX: Z01.818 Encounter for other preprocedural examination (principal); M48.062 Spinal stenosis, lumbar region with neurogenic claudication; Z20.822 Contact with and (suspected) exposure to COVID-19
CPT/HCPCS: 80048; 85027; 93005; 93010; U0003; U0005

== ENCOUNTER 2021-04-04 07:18 | Observation (INO) | payer BC ==
[2021-04-03 09:54] VITALS: BMI 34.2
[2021-04-04] MEDS ORDERED: Midazolam HCl 2 mg/2 ml Vial ONE (08:08)
[2021-04-04] MEDS ORDERED: ceFAZolin 2 GM/DEX 5% 100 ML BAG ONE (08:08)
[2021-04-04] MEDS ORDERED: Fentanyl 100 MCG/2 ML VIAL ONE ×3 (08:50→11:47)
[2021-04-04] MEDS ORDERED: ePHEDrine 50 MG/ML VIAL ONE (09:13)
[2021-04-04] MEDS ORDERED: Rocuronium Bromide 10 MG/ML (10ML VIAL) ONE (09:13)
[2021-04-04] MEDS ORDERED: PROPOFOL 200 MG/20 ML VIAL ONE (09:13)
[2021-04-04] MEDS ORDERED: Dexamethasone 20 MG/5 ML VIAL ONE (09:13)
[2021-04-04] MEDS ORDERED: Ondansetron PF 4 MG/2 ML Vial ONE (09:13)
[2021-04-04] MEDS ORDERED: Lidocaine 1% PF 5 ML VIAL ONE (09:13)
[2021-04-04] MEDS ORDERED: HYDROmorphone 2 MG/ML VIAL SLOW IVP PRN (10:10)
[2021-04-04] MEDS ORDERED: Promethazine HCl 25 MG/ML VIAL IM PRN ×2 (10:10→11:15)
[2021-04-04] MEDS ORDERED: Promethazine HCl 25 MG/ML VIAL IVPB PRN (10:10)
[2021-04-04] MEDS ORDERED: Meperidine HCl/PF 25 MG/ML VIAL SLOW IVP PRN (10:10)
[2021-04-04] MEDS ORDERED: SUGAMMADEX SODIUM 200 MG/2 ML VIAL ONE (10:17)
[2021-04-04] MEDS ORDERED: ALPRAZolam 0.25 MG TAB PO PRN (11:10)
[2021-04-04] MEDS ORDERED: cloNIDine 0.1 MG TAB PO PRN (11:11)
[2021-04-04] MEDS ORDERED: Promethazine 25 MG TAB PO PRN (11:15)
[2021-04-04] MEDS ORDERED: traMADol HCl 50 MG TAB PO PRN ×2 (11:15)
[2021-04-04] MEDS ORDERED: Acetaminophen/Codeine 30-300mg Tablet PO PRN (11:15)
[2021-04-04] MEDS ORDERED: Morphine 2 MG/ML VIAL SLOW IVP PRN (11:15)
[2021-04-04] MEDS ORDERED: Promethazine HCl 12.5 MG SUPP PR PRN (11:15)
[2021-04-04] MEDS ORDERED: tiZANidine HCl 4 MG TAB PO PRN (11:15)
[2021-04-04] MEDS ORDERED: diphenhydrAMINE 25 MG CAP PO PRN (11:15)
[2021-04-04] MEDS ORDERED: Mag-Al 1200 mg/1200 mg/30 ML UDCUP PO PRN (11:15)
[2021-04-04] MEDS ORDERED: Milk Of Magnesia 30 ML UDCUP PO PRN (11:15)
[2021-04-04] MEDS ORDERED: diphenhydrAMINE 50 MG/ML VIAL IVP PRN (11:15)
[2021-04-04] MEDS: Sucralfate 1 GM TAB PO SCH ×3 (14:35→22:17)
[2021-04-04] MEDS: Acetaminophen/Codeine 30-300mg Tablet PO PRN (14:37)
[2021-04-04] MEDS: Sodium Chloride 0.9% 1,000 ML IV SCH (14:38)
[2021-04-04] MEDS: Carvedilol 25 MG TAB PO SCH ×3 (14:39→21:08)
[2021-04-04] MEDS: Morphine 4 MG/ML VIAL SLOW IVP PRN ×3 (14:54→21:06)
[2021-04-04] MEDS: CEFAZOLIN 2 GM in Premix Bag 1 BAG IVPB SCH (18:08)
[2021-04-04] MEDS ORDERED: ALPRAZolam 1 MG TAB PO SCH (21:00)
[2021-04-04] MEDS: Magnesium Oxide 400 MG TAB PO SCH (21:08)
[2021-04-04] MEDS: Naproxen 500 MG TAB PO SCH (22:17)
[2021-04-05] MEDS: Acetaminophen/Codeine 30-300mg Tablet PO PRN (00:28)
[2021-04-05] MEDS: ceFAZolin Sodium/D5W 2 GM in Premix Bag 1 BAG IVPB SCH ×2 (01:27→07:47)
[2021-04-05] MEDS: Sodium Chloride 0.9% 1,000 ML IV SCH (03:44)
[2021-04-05] MEDS: CEFAZOLIN 2 GM in Premix Bag 1 BAG IVPB SCH (03:59)
[2021-04-05] MEDS: Morphine 4 MG/ML VIAL SLOW IVP PRN (06:00)
[2021-04-05] MEDS: Tamsulosin HCl 0.4 MG CAP PO SCH ×2 (06:00→06:07)
[2021-04-05] MEDS: Magnesium Oxide 400 MG TAB PO SCH (07:33)
[2021-04-05] MEDS: Carvedilol 25 MG TAB PO SCH (07:33)
[2021-04-05] MEDS: Naproxen 500 MG TAB PO SCH (07:34)
[2021-04-05] MEDS: Sucralfate 1 GM TAB PO SCH (07:40)
[2021-04-05] MEDS ORDERED: Allopurinol 300 MG TAB PO SCH (09:00)
[2021-04-05] MEDS ORDERED: Amlodipine 10 MG TAB PO SCH (09:00)
[2021-04-05] MEDS ORDERED: Acetaminophen 325 MG TAB PO PRN (10:00)
[2021-04-05 12:58] VITALS: BP 117/74; TEMP 98.4
== END 2021-04-05 12:30 | disposition home or self-care (01) ==
LOC: SDC 07:18 → SURG A 11:10
PROVIDERS: ADMIT Neurological Surgery; ATTEND Neurological Surgery
PROC: 01NB0ZZ Release Lumbar Nerve, Open Approach (ICD-10-PCS; principal; 2021-04-04)
DX: M48.062 Spinal stenosis, lumbar region with neurogenic claudication (principal); M71.38 Other bursal cyst, other site; M51.26 Other intervertebral disc displacement, lumbar region; M47.816 Spondylosis without myelopathy or radiculopathy, lumbar region; Z79.1 Long term (current) use of non-steroidal anti-inflammatories (NSAID); Z79.899 Other long term (current) drug therapy
CPT/HCPCS: 76000; 96365; 96372; 96375; 96376; G0378; J0690; J1100; J2250; J2270; J2405; J2550; J2704; J3010; J3370; J3490; J7050

== ENCOUNTER 2022-01-04 19:26 | Inpatient (IN) | payer BC ==
[2022-01-04 20:01] LABS: #Eosinphils 0.1 thou/uL (0.0-0.7); #Lymphocytes 0.2 thou/uL (1.20-3.40); #Monocytes 0.6 thou/uL (0.11-0.59); #Neutrophils 3.6 thou/uL (1.40-6.50); %Eosinophils 2.2 % (0.0-10.0); %Lymphocytes 4.7 % (21.0-51.0); %Monocytes 13.5 % (0.0-10.0); %Neutrophils 78.6 % (42.0-75.0); Hemoglobin 12.1 g/dL (14.0-18.0); Mean Corpuscular HGB CONC 33.7 g/dL (32.0-36.0); Mean Corpuscular Volume 94.9 fL (78.0-98.0); Mean Platelet Volume 8.6 fL (7.4-10.4); Platelet Count 151 thou/uL (130-400); RBC Distribution Width 11.7 % (11.5-14.5); Red Blood Cell (RBC) Count 3.79 mill/uL (4.70-6.10); White Blood Cell (WBC) Count 4.6 thou/uL (4.8-10.8)
[2022-01-04] MEDS ORDERED: Ketorolac Tromethamine 30 MG/ML VIAL ONE (20:08)
[2022-01-04] MEDS ORDERED: Acetaminophen 500 MG TAB ONE (20:08)
[2022-01-04 20:23] LABS: ALT (SGPT) 15 U/L (8-55); AST (SGOT) 20 U/L (5-34); Albumin 4.2 g/dL (3.4-4.8); Alkaline Phosphatase 76 U/L (40-110); Anion Gap 15 mmol/L (10-20); BUN (Urea Nitrogen) 10 mg/dL (8.4-25.7); Bilirubin, Total 0.4 mg/dL (0.2-1.2); CRP (Inflammatory) Less than 0.50 mg/dL (= or < 0.5); Calc. Creatinine Clearance 0 mL/min (70-130); Calcium 7.7 mg/dL (7.8-10.44); Carbon Dioxide 22 mmol/L (23-31); Chloride 102 mmol/L (98-107); Estimated GFR 56; Globulin 2.2 g/dL (2.4-3.5); Glucose 99 mg/dL (80-115); Protein, Total 6.4 g/dL (5.8-8.1); Sodium 136 mmol/L (136-145)
[2022-01-04 20:30] LABS: Potassium 2.8 mmol/L (3.5-5.1)
[2022-01-04] MEDS ORDERED: Ondansetron PF 4 MG/2 ML Vial ONE (21:00)
[2022-01-04] MEDS ORDERED: Potassium Chloride 20 MEQ TAB ONE (21:00)
[2022-01-04] MEDS ORDERED: Lorazepam 2 MG/ML VIAL ONE (21:46)
[2022-01-04] MEDS ORDERED: Morphine 4 MG/ML VIAL ONE (21:46)
[2022-01-04 21:52] LABS: SARS-CoV-2 NAA Rapid Test DETECTED (NotDetected)
[2022-01-04] MEDS ORDERED: HYDROcodone/Acetaminophen 5/325 mg Tablet PO PRN (23:09)
[2022-01-04] MEDS ORDERED: Albuterol 200 PUFF (6.7GM INHALER) INH PRN (23:09)
[2022-01-04] MEDS ORDERED: Bisacodyl 5 MG TAB PO PRN (23:09)
[2022-01-04] MEDS ORDERED: Acetaminophen 325 MG TAB PO PRN (23:09)
[2022-01-04] MEDS ORDERED: Zolpidem Tartrate 5 MG TAB PO PRN (23:09)
[2022-01-04] MEDS ORDERED: Acetaminophen 650 MG Suppository PR PRN (23:09)
[2022-01-04] MEDS ORDERED: ALPRAZolam 0.25 MG TAB PO PRN (23:12)
[2022-01-04] MEDS ORDERED: tiZANidine HCl 4 MG TAB PO PRN (23:12)
[2022-01-04] MEDS ORDERED: hydrALAZINE 20 MG/ML VIAL SLOW IVP PRN (23:13)
[2022-01-04 23:41] LABS: Magnesium 0.7 mg/dL (1.6-2.6)
[2022-01-04] MEDS ORDERED: Carvedilol 6.25 MG TAB PO SCH (23:45)
[2022-01-04] MEDS ORDERED: NIFEdipine XL 60 MG TAB PO SCH (23:45)
[2022-01-04] MEDS ORDERED: Dexamethasone 4 mg/ml Vial SLOW IVP SCH (23:45)
[2022-01-05] MEDS: Potassium Chloride 20 MEQ in Lactated Ringer's 1,000 ML IV SCH ×3 (00:10→19:45)
[2022-01-05] MEDS: Morphine 2 MG/ML VIAL SLOW IVP PRN ×2 (00:11→05:06)
[2022-01-05] MEDS ORDERED: ALPRAZolam 1 MG TAB PO SCH ×2 (00:30→21:00)
[2022-01-05] MEDS: Nicotine 14 MG PATCH TD SCH ×2 (00:43→23:00)
[2022-01-05 00:55] VITALS: BMI 32.1
[2022-01-05] MEDS: Ondansetron PF 4 MG/2 ML Vial IVP PRN ×3 (05:06→20:38)
[2022-01-05 06:16] LABS: #Lymphocytes 0.4 thou/uL (1.20-3.40); #Monocytes 0.4 thou/uL (0.11-0.59); #Neutrophils 2.3 thou/uL (1.40-6.50); %Basophils 0.2 % (0.0-1.0); %Eosinophils 0.3 % (0.0-10.0); %Lymphocytes 13.2 % (21.0-51.0); %Monocytes 12.7 % (0.0-10.0); %Neutrophils 73.6 % (42.0-75.0); Hemoglobin 12.1 g/dL (14.0-18.0); Mean Corpuscular Hemoglobin 32.6 pg (27.0-31.0); Mean Corpuscular Volume 95.9 fL (78.0-98.0); Mean Platelet Volume 8.9 fL (7.4-10.4); Platelet Count 128 thou/uL (130-400); RBC Distribution Width 11.8 % (11.5-14.5); Red Blood Cell (RBC) Count 3.71 mill/uL (4.70-6.10); White Blood Cell (WBC) Count 3.2 thou/uL (4.8-10.8)
[2022-01-05 06:36] LABS: Albumin 3.9 g/dL (3.4-4.8); Anion Gap 15 mmol/L (10-20); BUN (Urea Nitrogen) 10 mg/dL (8.4-25.7); BUN/Creatinine Ratio 7.14; Calc. Creatinine Clearance 0 mL/min (70-130); Calcium 7.4 mg/dL (7.8-10.44); Carbon Dioxide 23 mmol/L (23-31); Chloride 104 mmol/L (98-107); Estimated GFR 56; Glucose 101 mg/dL (80-115); Sodium 139 mmol/L (136-145)
[2022-01-05] MEDS ORDERED: Magnesium Sulfate In Water 4 GM in Premix Bag 1 BAG IVPB SCH (08:45)
[2022-01-05] MEDS: Potassium Chloride 20 MEQ in Premix Bag 1 BAG IVPB SCH ×3 (10:18→16:13)
[2022-01-05] MEDS: Dexamethasone 4 MG TAB PO SCH (10:19)
[2022-01-05] MEDS: Ascorbic Acid 500 mg Chewable Tablet PO SCH (10:19)
[2022-01-05] MEDS: Apixaban 5 MG TAB PO SCH ×2 (10:19→20:37)
[2022-01-05] MEDS: Benzonatate 100 MG CAP PO PRN (10:19)
[2022-01-05] MEDS: Acetaminophen 325 MG TAB PO PRN (10:20)
[2022-01-05] MEDS: Zinc Sulfate 220 MG CAP PO SCH (10:20)
[2022-01-05] MEDS: NIFEdipine XL 60 MG TAB PO SCH (10:20)
[2022-01-05] MEDS: Carvedilol 6.25 MG TAB PO SCH ×2 (10:20→16:19)
[2022-01-05] MEDS ORDERED: Prochlorperazine Edisylate 10 MG in Sodium Chloride 0.9% 50 ML IVPB PRN (11:28)
[2022-01-05] MEDS ORDERED: Morphine 2 MG/ML VIAL SLOW IVP PRN (12:16)
[2022-01-05] MEDS ORDERED: HYDROcodone/Acetaminophen 5/325 mg Tablet PO PRN (12:17)
[2022-01-05] MEDS: HYDROcodone/Acetaminophen 10/325 mg Tablet PO PRN ×2 (12:37→20:36)
[2022-01-05 17:32] LABS: Albumin 3.8 g/dL (3.4-4.8); Anion Gap 16 mmol/L (10-20); BUN (Urea Nitrogen) 10 mg/dL (8.4-25.7); BUN/Creatinine Ratio 6.58; Calc. Creatinine Clearance 0 mL/min (70-130); Calcium 7.2 mg/dL (7.8-10.44); Carbon Dioxide 18 mmol/L (23-31); Chloride 105 mmol/L (98-107); Estimated GFR 51; Glucose 187 mg/dL (80-115); Phosphorus 2.5 mg/dL (2.3-4.7); Potassium 3.5 mmol/L (3.5-5.1); Sodium 135 mmol/L (136-145)
[2022-01-05] MEDS: guaiFENesin/DM ER PO SCH (20:36)
[2022-01-06] MEDS: Acetaminophen 325 MG TAB PO PRN ×2 (00:03→08:17)
[2022-01-06] MEDS: Potassium Chloride 20 MEQ in Lactated Ringer's 1,000 ML IV SCH (05:26)
[2022-01-06] MEDS: Benzonatate 100 MG CAP PO PRN (05:38)
[2022-01-06] MEDS: HYDROcodone/Acetaminophen 10/325 mg Tablet PO PRN (05:38)
[2022-01-06] MEDS: Ondansetron PF 4 MG/2 ML Vial IVP PRN (06:58)
[2022-01-06 07:08] LABS: Anion Gap 16 mmol/L (10-20); BUN (Urea Nitrogen) 12 mg/dL (8.4-25.7); Calc. Creatinine Clearance 0 mL/min (70-130); Carbon Dioxide 20 mmol/L (23-31); Chloride 105 mmol/L (98-107); Estimated GFR 70; Glucose 114 mg/dL (80-115); Magnesium 1.7 mg/dL (1.6-2.6); Potassium 3.8 mmol/L (3.5-5.1); Sodium 137 mmol/L (136-145)
[2022-01-06] MEDS ORDERED: Calcium Carbonate 600 MG + Vit D TAB PO SCH (08:00)
[2022-01-06] MEDS: Zinc Sulfate 220 MG CAP PO SCH (08:03)
[2022-01-06] MEDS: guaiFENesin/DM ER PO SCH (08:03)
[2022-01-06] MEDS: Apixaban 5 MG TAB PO SCH (08:03)
[2022-01-06] MEDS: NIFEdipine XL 60 MG TAB PO SCH (08:04)
[2022-01-06] MEDS: Ascorbic Acid 500 mg Chewable Tablet PO SCH (08:04)
[2022-01-06] MEDS: Dexamethasone 4 MG TAB PO SCH (08:05)
[2022-01-06] MEDS: Carvedilol 6.25 MG TAB PO SCH (08:06)
[2022-01-06 08:13] VITALS: TEMP 98.2
[2022-01-06] MEDS ORDERED: NIFEdipine XL 30 MG TAB PO SCH (08:15)
[2022-01-06] MEDS ORDERED: Magnesium Sulfate In Water 4 GM in Premix Bag 1 BAG IVPB SCH (08:15)
[2022-01-06] MEDS ORDERED: Sodium Bicarbonate Tab 325 MG TAB PO SCH (09:00)
[2022-01-06] MEDS ORDERED: Allopurinol 300 MG TAB PO SCH (09:00)
[2022-01-06 11:17] VITALS: BP 162/84
[2022-01-06] MEDS ORDERED: Carvedilol 6.25 MG TAB PO SCH ×2 (17:00)
[2022-01-07] MEDS ORDERED: NIFEdipine XL 90 MG TAB PO SCH (09:00)
[2022-01-07] MEDS ORDERED: Dexamethasone 4 mg/ml Vial SLOW IVP SCH (09:00)
== END 2022-01-06 15:54 | disposition home or self-care (01) | DRG 178 ==
LOC: ERS 19:26 → T4-A 21:43 → OBSVTOIN 01-05 11:29
PROVIDERS: ADMIT Internal Medicine; ATTEND Internal Medicine
PROC: 8E0ZXY6 Isolation (ICD-10-PCS; principal; 2022-01-05)
DX: U07.1 COVID-19 (principal); N17.9 Acute kidney failure, unspecified; E78.5 Hyperlipidemia, unspecified; R11.2 Nausea with vomiting, unspecified; E87.6 Hypokalemia; E83.42 Hypomagnesemia; M10.9 Gout, unspecified; I48.0 Paroxysmal atrial fibrillation; K21.9 Gastro-esophageal reflux disease without esophagitis; K52.9 Noninfective gastroenteritis and colitis, unspecified; N18.9 Chronic kidney disease, unspecified; I12.9 Hypertensive chronic kidney disease with stage 1 through stage 4 chronic kidney disease, or unspecified chronic kidney disease; Z79.01 Long term (current) use of anticoagulants; Z79.899 Other long term (current) drug therapy; Z98.890 Other specified postprocedural states; Z92.21 Personal history of antineoplastic chemotherapy; Z85.72 Personal history of non-Hodgkin lymphomas; Z90.49 Acquired absence of other specified parts of digestive tract; Z87.891 Personal history of nicotine dependence; Z79.1 Long term (current) use of non-steroidal anti-inflammatories (NSAID); Z95.828 Presence of other vascular implants and grafts; Z90.89 Acquired absence of other organs
CPT/HCPCS: 36415; 71045; 80048; 80053; 80069; 82306; 83605; 83735; 83880; 84484; 85025; 85652; 86140; 93005; 96361; 96374; 96375; J0360; J0780; J1100; J1885; J2060; J2270; J2405; J3475; J3480; J7120; J8540

== ENCOUNTER 2024-01-13 15:53 | Outpatient (CLI) | payer BC | END 2024-01-13 15:54 | disposition home or self-care (01) | LOC: SCSRAD 15:53 | PROVIDERS: ATTEND Physician Assistant | DX: S80.12XA Contusion of left lower leg, initial encounter (principal) ==

== ENCOUNTER 2025-02-01 05:34 | Inpatient (IN) | payer BC ==
[2025-02-01] MEDS ORDERED: fentaNYL PF 100 MCG/2 ML SYRINGE ONE ×3 (06:12→09:54)
[2025-02-01] MEDS ORDERED: PROPOFOL 40 ML ONE (06:14)
[2025-02-01] MEDS ORDERED: Bupivacaine 0.25% HCL 30 ML VIAL ONE (06:28)
[2025-02-01] MEDS ORDERED: Lidocaine 1% (PF) 30 ML VIAL ONE (06:29)
[2025-02-01] MEDS ORDERED: Ropivacaine 0.5% HCl/PF (150 MG/30 ML VIAL) ONE (06:29)
[2025-02-01] MEDS ORDERED: Vancomycin HCl 1.5 GM VIAL ONE (06:35)
[2025-02-01] MEDS ORDERED: Tranexamic Acid 1,000 MG/10 ML VIAL ONE (06:35)
[2025-02-01] MEDS ORDERED: Ondansetron PF 4 MG/2 ML Vial IVP PRN (06:48)
[2025-02-01] MEDS ORDERED: diphenhydrAMINE 25 MG CAP PO PRN (06:48)
[2025-02-01] MEDS ORDERED: Diphenoxylate HCl/Atropine Tablet PO PRN (06:49)
[2025-02-01] MEDS ORDERED: CEFAZOLIN 2 GM VIAL ONE (06:58)
[2025-02-01] MEDS ORDERED: Albuterol 200 PUFF INH INH PRN (07:10)
[2025-02-01] MEDS ORDERED: Ondansetron PF 4 MG/2 ML Vial ONE ×2 (07:26→08:42)
[2025-02-01] MEDS ORDERED: Glycopyrrolate 0.2 MG/ML 5 ML SYRINGE ONE (07:32)
[2025-02-01] MEDS ORDERED: Ropivacaine 0.2% 550 ML 550 ML NERVE BLCK SCH (07:45)
[2025-02-01] MEDS ORDERED: HYDROmorphone 2 MG/ML VIAL ONE (08:43)
[2025-02-01] MEDS ORDERED: HYDROmorphone 0.5 MG/0.5 ML SYRINGE ONE ×3 (09:39→11:08)
[2025-02-01 14:24] VITALS: BMI 29.8
[2025-02-01] MEDS: Carvedilol 25 MG TAB PO SCH (14:36)
[2025-02-01] MEDS: Ferrous Gluconate 324 MG TAB PO SCH (14:37)
[2025-02-01] MEDS: Pantoprazole 40 MG DR.TAB PO SCH (14:37)
[2025-02-01] MEDS: Multivitamin W/ Minerals 1 TAB PO SCH (14:37)
[2025-02-01] MEDS: Senokot S 8.6-50 MG TAB PO SCH (14:38)
[2025-02-01] MEDS: HYDROcodone/Acetaminophen 10/325 mg Tablet PO PRN (14:58)
[2025-02-01] MEDS: NIFEdipine XL 60 MG ER.TAB PO SCH (21:00)
[2025-02-02] MEDS: HYDROcodone/Acetaminophen 10/325 mg Tablet PO PRN (02:47)
[2025-02-02] MEDS: Acetaminophen 325 MG TAB PO PRN (04:36)
[2025-02-02 07:05] LABS: Anion Gap 15 mmol/L (10-20); BUN (Urea Nitrogen) 15 mg/dL (8.4-25.7); Calc. Creatinine Clearance 84 mL/min (70-130); Calcium 7.7 mg/dL (7.8-10.44); Carbon Dioxide 18 mmol/L (23-31); Chloride 105 mmol/L (98-107); Glucose 136 mg/dL (80-115); Potassium 3.4 mmol/L (3.5-5.1); Sodium 135 mmol/L (136-145)
[2025-02-02 07:21] LABS: Hematocrit 34.1 % (42.0-52.0); Hemoglobin 12.1 g/dL (14.0-18.0); Mean Corpuscular Hemoglobin 31.5 pg (27.0-31.0); Mean Corpuscular Volume 88.8 fL (78.0-98.0); Platelet Count 168 10x3/uL (130-400); Red Blood Cell (RBC) Count 3.84 mill/uL (4.70-6.10); White Blood Cell (WBC) Count 15.99 10x3/uL (4.8-10.8)
[2025-02-02] MEDS: Apixaban 5 MG TAB PO SCH (08:53)
[2025-02-03] MEDS: Ketorolac Tromethamine 30 MG (1 mL) VIAL IVP SCH (00:59)
[2025-02-03] MEDS: Albuterol 200 PUFF (6.7GM INHALER) INH PRN (01:19)
[2025-02-03 06:02] LABS: Hematocrit 31.8 % (42.0-52.0); Hemoglobin 10.9 g/dL (14.0-18.0); Mean Corpuscular Hemoglobin 30.4 pg (27.0-31.0); Mean Corpuscular Volume 88.8 fL (78.0-98.0); Platelet Count 145 10x3/uL (130-400); Red Blood Cell (RBC) Count 3.58 mill/uL (4.70-6.10); White Blood Cell (WBC) Count 9.89 10x3/uL (4.8-10.8)
[2025-02-03] MEDS: Gabapentin 300 MG CAP PO SCH (08:27)
[2025-02-03] MEDS: Ondansetron PF 4 MG/2 ML Vial IVP PRN (09:19)
[2025-02-03] MEDS: ALPRAZolam 0.5 MG TAB PO SCH (20:18)
[2025-02-04] MEDS: Cyclobenzaprine 10 MG TAB PO PRN (02:40)
[2025-02-04 05:51] LABS: Hematocrit 29.9 % (42.0-52.0); Hemoglobin 10.2 g/dL (14.0-18.0); Mean Corpuscular Hemoglobin 30.9 pg (27.0-31.0); Mean Corpuscular Volume 90.6 fL (78.0-98.0); Platelet Count 156 10x3/uL (130-400); Red Blood Cell (RBC) Count 3.30 mill/uL (4.70-6.10); White Blood Cell (WBC) Count 8.69 10x3/uL (4.8-10.8)
[2025-02-04 06:03] LABS: Anion Gap 14 mmol/L (10-20); BUN (Urea Nitrogen) 13 mg/dL (8.4-25.7); Calc. Creatinine Clearance 77 mL/min (70-130); Calcium 7.4 mg/dL (7.8-10.44); Carbon Dioxide 26 mmol/L (23-31); Chloride 101 mmol/L (98-107); Glucose 100 mg/dL (80-115); Magnesium 1.2 mg/dL (1.6-2.6); Potassium 3.1 mmol/L (3.5-5.1); Sodium 138 mmol/L (136-145)
[2025-02-04 09:26] LABS: ALT (SGPT) Less than 7 U/L (Less than 45); AST (SGOT) 15 U/L (11-34); Albumin 3.0 g/dL (3.1-4.5); Alkaline Phosphatase 65 U/L (40-110); Bilirubin, Direct 0.4 mg/dL (0.1-0.3); Bilirubin, Total 1.1 mg/dL (0.3-1.2)
[2025-02-04] MEDS: Calcium Carbonate 500 MG ChewTAB PO SCH (09:41)
[2025-02-04] MEDS: Magnesium 2 GM/50 ML(in water) 2 GM in Premix 1 BAG IVPB SCH (09:42)
[2025-02-04 13:05] VITALS: TEMP 98.8
[2025-02-04 13:51] VITALS: BP 135/70
[2025-02-04] MEDS ORDERED: Calcium Carbonate 500 MG ChewTAB PO SCH (21:00)
== END 2025-02-04 13:30 | disposition home or self-care (01) | DRG 470 ==
LOC: SDC 05:34 → SURG B 13:22 → OBSVTOIN 02-02 14:10
PROVIDERS: ADMIT Orthopaedic Surgery; ATTEND Orthopaedic Surgery
PROC: 0SRD0JA Replacement of Left Knee Joint with Synthetic Substitute, Uncemented, Open Approach (ICD-10-PCS; principal; 2025-02-01)
DX: M17.12 Unilateral primary osteoarthritis, left knee (principal); D62 Acute posthemorrhagic anemia; E87.20 Acidosis, unspecified; Z87.828 Personal history of other (healed) physical injury and trauma; I10 Essential (primary) hypertension; I48.91 Unspecified atrial fibrillation; G89.29 Other chronic pain; F41.9 Anxiety disorder, unspecified; E87.6 Hypokalemia; Z79.899 Other long term (current) drug therapy
CPT/HCPCS: 36415; 80048; 80076; 82306; 83735; 85027; A4306; C1713; C1776; C1889; J0169; J0665; J1100; J1171; J1885; J2250; J2405; J2704; J2795; J3010; J3475; J7030; Q0177